=== PATIENT | female | born 1945 | race Two or more races ===

== ENCOUNTER 2025-05-17 20:01 | Inpatient (IN) | payer MEDICARE, OTHER ==
[~2025-05-17] VITALS: Ht 165.1 cm; Wt 99.3 kg
--- NOTE | 2025-05-17 20:12 | NUR ---
BIBRA 839 FROM HOME CO LEFT LEG BEDSORE AND FOOT REDNESS X A FEW DAYS
[2025-05-17] MEDS ORDERED: VANCOMYCIN 1 GM /D5W 250 ML PB IV ONE (20:46)
[2025-05-17] MEDS ORDERED: CEFEPIME 1 GM VIAL ONE (20:46)
[2025-05-17] MEDS ORDERED: ONDANSETRON HCL/PF 4 MG/2 ML VIAL ONE (20:46)
[2025-05-17] MEDS ORDERED: MORPHINE SULFATE INJ 4 MG/ML DISP.SYRIN ONE (20:47)
--- NOTE | 2025-05-17 20:50 | NUR ---
lab and bedside for blood cultures. blood drawn and given to lab
[2025-05-17] MEDS: CEFEPIME 1 GM in IV D5W 50 ML IV ONE (21:00)
[2025-05-17] MEDS: IV NS 0.9% 500 ML BAG IV ONE (21:00)
[2025-05-17] MEDS: MORPHINE SULFATE INJ 2 MG/ML DISP.SYRIN IV ONE (21:00)
[2025-05-17] MEDS: ONDANSETRON HCL/PF 4 MG/2 ML VIAL IVP ONE (21:00)
[2025-05-17 21:10] LABS: PLATELET COUNT (AUTO) 337 K/uL (150-450); RED BLOOD CELL COUNT(AUTO) 3.85 MIL/uL (4.0-5.2); RED CELL DISTRIBUTION WIDTH 16.1 % (11.5-15.0); WHITE BLOOD COUNT (AUTO) 7.7 K/uL (4.3-11.0)
[2025-05-17 21:21] LABS: INR 1.04 (0.91-1.10)
[2025-05-17 21:22] LABS: ASPARTATE AMINOTRANSFERASE 20.0 U/L (15-37); CALCIUM, SERUM 9.5 mg/dL (8.5-10.1); CREATININE 1.0 mg/dL (0.6-1.3); SODIUM SERUM 142.0 mmol/L (136-145); TOTAL PROTEIN, SERUM 8.2 g/dL (6.4-8.2); UREA NITROGEN, BLOOD 19.0 mg/dL (7-18)
[2025-05-17 21:26] LABS: LACTIC ACID 1.5 mmol/L (0.4-2.0)
--- NOTE | 2025-05-17 21:40 | NUR ---
RADIOLOGY AT BEDSIDE FOR US
[2025-05-17] MEDS: VANCOMYCIN 1 GM in IV D5W 250 ML IV ONE (21:41)
[2025-05-17] MEDS ORDERED: MAGNESIUM HYDROXIDE 30 ML UDC PO PRN (22:30)
[2025-05-17] MEDS ORDERED: ONDANSETRON HCL/PF 4 MG/2 ML VIAL IVP PRN (22:30)
[2025-05-17] MEDS ORDERED: DOSING PER PHARMACY-CEFEPIME IVPB XX PRN (22:30)
[2025-05-17] MEDS ORDERED: DOSING PER PHARMACY-VANCOMYCIN IV XX PRN (22:30)
[2025-05-17] MEDS ORDERED: MAG HYDROX/AL HYDROX/SIMETH 30 ML UDC PO PRN (22:30)
[2025-05-17 23:10] LABS: APPEARANCE,URINE CLEAR (CLEAR); BLOOD, URINE TRACE-INTA Ery/uL (NEGATIVE); LEUKOCYTE ESTERASE ,URINE TRACE (NEGATIVE); NITRITE, URINE POSITIVE (NEGATIVE); UGLUCOSE NEGATIVE (NEGATIVE)
--- NOTE | 2025-05-17 23:18 | NUR ---
report given to Olga VILLARREAL
--- NOTE | 2025-05-17 23:18 | NUR ---
unable to retrieve home meds
[2025-05-17 23:22] LABS: ADD URINE CULTURE YES
[2025-05-17 23:30] VITALS: BP 116/48; TEMP 97.7
--- NOTE | 2025-05-17 23:37 | NUR ---
Transferred to [facility]-1
--- NOTE | 2025-05-18 01:06 | NUR ---
RN WAITING FOR SERVICES PROGRAM MANAGER TO BRING PATRICIA
[2025-05-18] MEDS: IV NS 0.9% 250 ML IV PRN (01:41)
[2025-05-18] MEDS: VANCOMYCIN 750 MG in IV D5W 250 ML IV ONE (01:42)
[2025-05-18] MEDS: ENOXAPARIN SODIUM 40 MG/0.4 ML DISP.SYRIN SQ SCH (01:43)
[2025-05-18] MEDS: VANCOMYCIN 1 GM /D5W 250 ML PB IV ONE (01:44)
[2025-05-18] MEDS ORDERED: CLOP75TA15 PO (02:14)
[2025-05-18] MEDS ORDERED: ASPI-1169 PO (02:14)
[2025-05-18] MEDS ORDERED: ACET325T53 PO (02:14)
[2025-05-18] MEDS ORDERED: FURO40TA5 PO (02:14)
[2025-05-18] MEDS ORDERED: LOSA50TA39 PO (02:14)
[2025-05-18] MEDS ORDERED: AMLO-213 PO (02:14)
[2025-05-18] MEDS ORDERED: ATOR40TA PO (02:14)
[2025-05-18] MEDS ORDERED: METO50TA16 PO (02:14)
[2025-05-18] MEDS ORDERED: PANT40TA49 PO (02:14)
[2025-05-18] MEDS: ACETAMINOPHEN 325 MG TABLET PO PRN (03:49)
[2025-05-18 04:00] VITALS: BP 116/82; TEMP 97.7
--- NOTE | 2025-05-18 08:03 | NUR ---
RN OPENING NOTES RECEIVED PATIENT IN BED AWAKE, APPEARS TO BE COMFORTABLE, PT. IS A/O X 4. PT IS ON 2 L OXYGENATION VIA NC, PT. HAS PUREWICK AND VIA WALL SUCTIONING. PT IS ON CARDIAC DIET AND IV SITE AT [facility]G RUNNING NS TKO. HOB ELEVATED FOR PATIENT COMFORT AND ASPIRATION PRECAUTION, SIDE RAILS UPX3 ALL THE TIME, ALL FALL/SAFETY MEASURES IMPLEMENTED PER UNIT PROTOCOL, BED LOCKED AND IN THE LOWEST POSITION, CALL LIGHT AND TRAY WITHIN EASY REACH, WILL CONTINUE PLAN OF CARE.
[2025-05-18 08:09] LABS: PLATELET COUNT (AUTO) 295 K/uL (150-450); RED BLOOD CELL COUNT(AUTO) 3.42 MIL/uL (4.0-5.2); RED CELL DISTRIBUTION WIDTH 16.0 % (11.5-15.0); WHITE BLOOD COUNT (AUTO) 7.0 K/uL (4.3-11.0)
[2025-05-18 08:22] LABS: LACTIC ACID 0.7 mmol/L (0.4-2.0)
[2025-05-18 08:24] LABS: ERYTHROCYTE SEDIMENTATION RATE 33 MM/HR (0-30)
[2025-05-18] MEDS ORDERED: METO-357 PO (08:34)
[2025-05-18 09:00] LABS: CALCIUM, SERUM 8.6 mg/dL (8.5-10.1); CREATININE 0.9 mg/dL (0.6-1.3); NT-PRO BNP 1058.0 pg/mL (0-125); PHOSPHORUS 3.5 mg/dL (2.5-4.9); SODIUM SERUM 141.0 mmol/L (136-145); UREA NITROGEN, BLOOD 13.0 mg/dL (7-18)
[2025-05-18] MEDS ORDERED: PANTOPRAZOLE 40 MG TABLET.DR PO SCH (09:00)
[2025-05-18] MEDS: AMLODIPINE BESYLATE 10 MG TABLET PO SCH (09:00)
[2025-05-18] MEDS ORDERED: CEFEPIME 1 GM in IV D5W 50 ML IV SCH (09:00)
[2025-05-18] MEDS: METOPROLOL TARTRATE 50 MG TABLET PO SCH (09:00)
[2025-05-18] MEDS: ASPIRIN 81 MG TAB.CHEW PO SCH (09:11)
[2025-05-18] MEDS: ACETAMINOPHEN 325 MG TABLET PO SCH (09:11)
[2025-05-18] MEDS: FUROSEMIDE 40 MG TABLET PO SCH (09:11)
[2025-05-18] MEDS: CLOPIDOGREL BISULFATE 75 MG TABLET PO SCH (09:11)
[2025-05-18] MEDS: PANTOPRAZOLE 40 MG TABLET.DR PO SCH (09:12)
[2025-05-18] MEDS: LOSARTAN POTASSIUM 50 MG TABLET PO SCH (09:12)
[2025-05-18] MEDS: ATORVASTATIN 40 MG TABLET PO SCH (09:12)
[2025-05-18] MEDS: CEFEPIME 2 GM in IV D5W 100 ML IV SCH (09:15)
--- NOTE | 2025-05-18 09:22 | NUR ---
WOUND CARE CONSULT: PT PRESENTS WITH SACRAL SCARRING, LEFT CALF OPEN AREA, REDNESS WITH WEEPING EDEMA TO BILATERAL LOWER LEGS, ALL PRESENT ON ADMISSION. PUREWICK NOTED TO BE LEAKING. DISCUSSED WITH NURSING STAFF. DPM CONSULT CALLED TO DR GRAYSON. DISCUSSED SKIN PROTECTION WITH NURSING STAFF. LEGS ELEVATED. MD IN AGREEMENT WITH PLAN OF CARE.
[2025-05-18] MEDS ORDERED: Z GUARD REMEDY 4 OZ OINT TP PRN (09:30)
[2025-05-18] MEDS: Z GUARD REMEDY 4 OZ OINT TP SCH (09:30)
[2025-05-18 16:00] VITALS: BP 95/69; TEMP 97.7; O2SAT 93
--- NOTE | 2025-05-18 18:50 | NUR ---
CLOSING NOTES LEFT PATIENT IN BED RESTING, APPEARS TO BE COMFORTABLE, PT. IS A/O X 4. PT IS ON 2 L OXYGENATION VIA NC, PT. HAS PUREWICK AND VIA WALL SUCTIONING. PT IS ON CARDIAC DIET AND IV SITE AT [facility] #22G RUNNING NS TKO. KEPT PATIENT CLEAN AND DRY, ALL MEDS GIVEN AND NEEDS ATTENDED AND ANTICIPATED. HOB ELEVATED FOR PATIENT COMFORT AND ASPIRATION PRECAUTION, SIDE RAILS UPX3 ALL THE TIME, ALL FALL/SAFETY MEASURES IMPLEMENTED PER UNIT PROTOCOL, BED LOCKED AND IN THE LOWEST POSITION, CALL LIGHT AND TRAY WITHIN EASY REACH, WILL ENDORSE TO NIGHT RN.
--- NOTE | 2025-05-18 19:57 | NUR ---
MS RN OPENING NOTES PATIENT IN BED RESTING, APPEARS TO BE COMFORTABLE, PATIENT IS A/O X 4. PATIENT IS ON 2 L O2 VIA NC, BREATHING EVEN AND UNLABORED, NO DISTRESS OR SHORTNESS OF BREATH NOTED. PATIENT HAS PUREWICK AND VIA WALL SUCTIONING. PATIENT IS ON CARDIAC DIET AND IV SITE AT [facility] #22G RUNNING NS TKO. ASPIRATION PRECAUTION IMPLEMENTED, HOB ELEVATED, SIDE RAILS UPX3. FALL/SAFETY MEASURES IMPLEMENTED PER UNIT PROTOCOL, BED LOCKED AND IN THE LOWEST POSITION, CALL LIGHT AND TRAY WITHIN EASY REACH. WILL CONTINUE TO MONITOR THE PATIENT.
[2025-05-18 20:00] VITALS: BP 110/57; TEMP 97.7; O2SAT 97
[2025-05-19] VITALS: BP 110/57; TEMP 97.7; O2SAT 97
[2025-05-19] MEDS: VANCOMYCIN HCL 1.25 GM in IV D5W 250 ML IV SCH (01:13)
--- NOTE | 2025-05-19 02:53 | NUR ---
RN NOTE PATIENT COMPLAINED OF LEFT LEG PAIN 3. PRN TYLENOL GIVEN. WILL CONTINUE TO MONITOR.
[2025-05-19 04:00] VITALS: BP 113/68; TEMP 97.9; O2SAT 95
--- NOTE | 2025-05-19 06:42 | NUR ---
MS RN CLOSING NOTES PATIENT IN BED RESTING, APPEARS TO BE COMFORTABLE, PATIENT IS A/O X 4, HEARING AID ON LEFT EAR. PATIENT IS ON 2 L O2 VIA NC, WITH SPO2 95%, BREATHING EVEN AND UNLABORED, NO DISTRESS OR SHORTNESS OF BREATH NOTED. PATIENT HAS PUREWICK CONNECTED VIA WALL SUCTIONING-OUTPUT 800ML, YELLOW COLOR. PATIENT IS ON CARDIAC DIET AND IV SITE AT [facility] #[facility]G RUNNING NS TKO. PATIENT NEEDS ARE MET. ALL MEDS GIVEN. PATIENT IS CLEAN AND DRY. ASPIRATION PRECAUTION IMPLEMENTED, HOB ELEVATED, SIDE RAILS UPX3. FALL/SAFETY MEASURES IMPLEMENTED PER UNIT PROTOCOL, BED LOCKED AND IN THE LOWEST POSITION, CALL LIGHT AND TRAY WITHIN EASY REACH. WILL ENDORSE TO MORNING SHIFT NURSE.
[2025-05-19 06:52] LABS: CALCIUM, SERUM 8.9 mg/dL (8.5-10.1); CREATININE 0.9 mg/dL (0.6-1.3); SODIUM SERUM 138.0 mmol/L (136-145); UREA NITROGEN, BLOOD 15.0 mg/dL (7-18)
--- NOTE | 2025-05-19 07:32 | NUR ---
RECEIVED PATIENT IN BED RESTING WATCHING TV, APPEARS TO BE COMFORTABLE, PATIENT IS A/O X 4, HEARING AID ON LEFT EAR. PATIENT ON 2 L O2 VIA NC, SATURATING AT 95%, BREATHING EVEN AND UNLABORED, NO DISTRESS OR SHORTNESS OF BREATH NOTED. PATIENT HAS PUREWICK CONNECTED VIA WALL SUCTIONING PROPERLY. ON CARDIAC DIET AND IV SITE AT [facility] INTACT, PATENT AND RUNNING NS TKO. PATIENT IS CLEAN AND DRY. ASPIRATION PRECAUTION IMPLEMENTED, HOB ELEVATED, SIDE RAILS UPX3. FALL/SAFETY MEASURES IMPLEMENTED PER UNIT PROTOCOL, BED LOCKED AND IN THE LOWEST POSITION, CALL LIGHT AND TRAY WITHIN EASY REACH. WILL WILL CONT TO MONITOR
[2025-05-19 08:00] VITALS: BP 111/70; TEMP 98; O2SAT 95
[2025-05-19 11:19] VITALS: O2SAT 95
[2025-05-19 16:00] VITALS: BP 132/86; TEMP 98; O2SAT 97
--- NOTE | 2025-05-19 19:01 | NUR ---
RN CLOSING NOTES PATIENT IN BED RESTING WATCHING TV, APPEARS TO BE COMFORTABLE, PATIENT IS A/O X 4, HEARING AID ON LEFT EAR. PATIENT ON 2 L O2 VIA NC, SATURATING AT 95%, BREATHING EVEN AND UNLABORED, NO DISTRESS OR SHORTNESS OF BREATH NOTED. PATIENT HAS PUREWICK CONNECTED VIA WALL SUCTIONING PROPERLY NOTES WITH 1100 URINE OUTPUT. ALL DUE MEDS GIVEN ORDERED AND TOLERATED WELL. ON CARDIAC DIET AND IV SITE AT [facility]G INTACT, PATENT AND RUNNING NS TKO. PATIENT IS CLEAN AND DRY. ASPIRATION PRECAUTION IMPLEMENTED, HOB ELEVATED, SIDE RAILS UPX3. FALL/SAFETY MEASURES IMPLEMENTED PER UNIT PROTOCOL, BED LOCKED AND IN THE LOWEST POSITION, CALL LIGHT AND TRAY WITHIN EASY REACH. WILL WILL CONT TO MONITOR
--- NOTE | 2025-05-19 19:10 | NUR ---
MS-RN OPENING NOTES; 117-1 RECEIVED PATIENT FOR CONTINUITY OF CARE AWAKE ON BED IN MODERATE-HIGH BACK REST POSITION. A/O X 4, RESPONSIVE WITH HOPI AND HEARING AID ON LEFT EAR. ON 2 LPM O2 VIA NC, TOLERATING WELL BREATHES EVENLY AND UNLABORED. NO NO SOB NOR S/SX OF ACUTE CARDIO-RESPIRATORY DISTRESS NOTED AT THIS TIME. NOTED PATIENT ON PUREWICK DRAINING STRAW COLORED URINE VIA WALL SUCTION. IV ACCESS AT [facility]G INTACT, PATENT AND RUNNING NS TKO. NO OTHER COMPLAINTS AT THE MOMENT EXCEPT FOR THE NOISY PATIENT AT THE OTHER BED. MAINTAIN FALL AND ALL SAFETY MEASURES IN PLACE PER HOSPITAL UNIT PROTOCOL AT ALL TIMES. PLAN OF CARE ONGOING.
[2025-05-19 20:00] VITALS: BP 102/61; TEMP 98.8; O2SAT 94
[2025-05-20] VITALS: BP 118/70; TEMP 98.2; O2SAT 97
[2025-05-20 04:00] VITALS: BP 121/65; TEMP 98.8; O2SAT 94
--- NOTE | 2025-05-20 06:42 | NUR ---
MS-RN CLOSING NOTES; 114-2 LEFT PATIENT RESTING ON BED AWAKE IN MODERATE-HIGH BACK REST POSITION. A/O X 4, INTERACTIVE WITH INAJA AND HEARING AID ON LEFT EAR. STABLE THROUGHOUT SHIFT ON 2 LPM O2 VIA NC, TOLERATING WELL BREATHES EVENLY AND UNLABORED. NO NO SOB NOR S/SX OF ACUTE CARDIO-RESPIRATORY DISTRESS NOTED AT THIS TIME. ON PUREWICK DRAINING 1520 ML. OF STRAW COLORED URINE VIA WALL SUCTION. IV ACCESS AT [facility] #[facility]G INTACT,PATENT AND RUNNING WITH NS @ TKO. NO OTHER COMPLAINTS AT THE MOMENT. ALL NURSING CARE AND NEEDS ANTICIPATED AND ATTENDED. ALL DUE MEDS GIVEN ORDERED. KEPT PATIENT CLEAN, DRY WARM AND COMFORTABLE. MAINTAIN FALL AND ALL SAFETY MEASURES IN PLACE PER HOSPITAL UNIT PROTOCOL AT ALL TIMES. PLAN OF CARE ONGOING, WILL ENDORSE TO AM SHIFT NURSE FOR LOLY.
[2025-05-20 07:55] LABS: CALCIUM, SERUM 9.3 mg/dL (8.5-10.1); CREATININE 0.9 mg/dL (0.6-1.3); SODIUM SERUM 140.0 mmol/L (136-145); UREA NITROGEN, BLOOD 11.0 mg/dL (7-18)
[2025-05-20 08:00] VITALS: BP 110/71; TEMP 98.3; O2SAT 99
[2025-05-20 08:25] VITALS: TEMP 98.3
[2025-05-20 08:26] VITALS: BP 110/71
[2025-05-20] MEDS ORDERED: SULF1TAB48 PO (09:26)
--- NOTE | 2025-05-20 12:40 | NUR ---
RN NOTE - CLOSING NOTE, DISCHARGE RECEIVE ORDERS FOR DISCHARGE. PATIENT IS ALERT AND ORIENTED X4, ABLE TO MAKE NEEDS KNOWN. PATIENT IS STABLE ON ROOM AIR, NO SHORTNESS OF BREATH OR SIGNS AND SYMPTOMS OF DISTRESS NOTED. DISCHARGE INSTRUCTIONS GIVEN, PATIENT VERBALIZED UNDERSTANDING. ALL BELONGINGS ACCOUNTED FOR, BELONGING SHEET SIGNED. PATIENT DENIES ANY PAIN OR DISCOMFORT AT THIS TIME. IV ACCESS REMOVED, CATHETER TIP INTACT. PRESSURE DRESSING APPLIED. EXIT CARE FOLDER GIVEN TO PATIENT. PATIENT LEFT IN STABLE CONDITION VIA 2 EMT'S FROM [facility] VIA [facility]. REPORT WAS GIVEN TO PHIL MALONE. FROM [facility].
== END 2025-05-20 12:50 | DRG 603 ==
LOC: ER 20:03 → TELE1 23:20 → MEDSG1 05-18 00:08
PROVIDERS: ADMIT Nurse Practitioner Family; ATTEND Internal Medicine
DX: L03.115 Cellulitis of right lower limb (principal); D68.59 Other primary thrombophilia; L03.116 Cellulitis of left lower limb; E66.9 Obesity, unspecified; I10 Essential (primary) hypertension; I73.9 Peripheral vascular disease, unspecified; Z68.36 Body mass index [BMI] 36.0-36.9, adult; S81.802A Unspecified open wound, left lower leg, initial encounter; S81.801A Unspecified open wound, right lower leg, initial encounter; X58.XXXA Exposure to other specified factors, initial encounter; Y93.9 Activity, unspecified; Y92.009 Unspecified place in unspecified non-institutional (private) residence as the place of occurrence of the external cause
CPT/HCPCS: 36415; 71045-TC; 80048-TC; 80076-TC; 80202-TC; 81001; 83605-TC; 83735-TC; 83880; 84100-TC; 85025-TC; 85652-TC; 85730-TC; 87040-TC; 87086-TC; 87186-TC; 93307-TC; 93970-TC; 97110-TC; 97116-TC; 97530-TC; A4223; G0378; J0692; J1650; J2270; J2405; J3373; J3374; J7040; J7050; J7060